=== PATIENT | female | born 1985 | race Caucasian/White ===

== ENCOUNTER 2018-03-03 11:56 | Inpatient (IN) ==
[2018-03-03] MEDS ORDERED: RINGER'S SOLUTION,LACTATED 1,000 ML IV ONE (12:09)
[2018-03-03] MEDS ORDERED: DEXTROSE 5%-LACTATED RINGERS 1,000 ML IV PRN (12:09)
[2018-03-03] MEDS ORDERED: OXYTOCIN/DEXTROSE 5%-WATER 30 UNITS/500 ML BAG IV ONE (12:09)
[2018-03-03] MEDS ORDERED: ONDANSETRON HCL/PF 2 MG/ML VIAL IV PRN ×2 (12:09→22:23)
[2018-03-03 13:10] LABS: Hematocrit 42.1 % (37.0-47.0); Hemoglobin 14.5 gm/dL (12.5-16.0); Mean Corpuscular Hemoglobin 30.7 pg (27-31); Mean Corpuscular Hgb Conc 34.4 g/dl (32-36); Mean Platelet Volume 11.1 fl (8-12.5); Neutrophil # 4.9 K/mm3 (1.3-6.0); Platelet Count 182 K/mm3 (150-450); Red Blood Count 4.73 M/mm3 (4.2-5.4); Red Cell Distribution Width 13.2 % (11.5-14.0); White Blood Count 7.4 K/mm3 (4.0-10.5)
[2018-03-03 13:22] LABS: Albumin * 2.6 gm/dl (3.4-5.0); Anion Gap 11.5 mmol/L (6.8-13.8); BUN/Creatinine Ratio 18.8 (9.0-21.6); Bilirubin, Total 0.2 mg/dL (0.0-1.1); Ca. Corrected For Albumin 9.8 mg/dL (8.4-10.2); Carbon Dioxide 22.3 mmol/L (24-32.6); Potassium 3.8 mmol/L (3.4-4.6); Total Protein 5.8 gm/dL (6.2-8.2)
[2018-03-03 14:39] LABS: Random Urine Total Protein 19.8 mg/dL (0-12)
--- NOTE | 2018-03-03 17:38 | HP ---
Chief Complaint - Chief Complaint Date of Service: 03/03/18 Time of Service: 17:12 Chief Complaint: Induction for non-reassuring antepartum testing. History of Present Illness: 33 yo at 37 2/7 wks presents to L&D for induction of labor due to recurrent non-reassuring testing. Patient has been receiving antepartum testing for a fetus with 2 vessel cord and downward trending growth on ultrasounds. The tracing during NSTs had long periods of min/absent BTBV and occasional decelerations (variable and late). Because of this, she went from weekly to 2x/wk monitoring. Each NST took longer and longer to become reactive, requiring vibra-acoustic stimulation each time. During the past week, she failed to have a reactive NST x 3. She had a BPP after the first one which was 8/8, a JERKER after the 2nd one due to the late deceleration which was O.K. but the tracing had periods of concern. Today she presented to office complaining of contractions - NST again was not reactive and had a late deceleration. For this reason she is being admitted for induction of labor. This complicated by 2 vessel cord, downward trending growth (52.2 -> 27.5%, with HC and BPD <3%), non-reassuring antepartum testing, h/o GHTN, h/o PRROM/PTD at 35 wks. Rh positive Rubella immune GBS negative Medical History (Last Updated 11/17/17 @ 08:04 by [facility]) Anxiety Onset Date: ~03/10/17 Mild mood disorder Onset Date: ~02/23/15 Seasonal allergies Onset Date: Unknown Abnormal Pap smear of cervix Onset Date: ~2004 Chlamydia Onset Date: ~2003 GERD (gastroesophageal reflux disease) Onset Date: ~2006 Gestational HTN Onset Date: ~09/08/13 History of premature rupture of membranes Onset Date: Unknown History of delivery Onset Date: ~08/2013 [place] teeth extracted Onset Date: ~2007 Surgical History: Surgical History (Last Updated 11/17/17 @ 08:11 by [facility]) History of colposcopy Onset Date: ~2004 History of laparoscopic cholecystectomy Onset Date: ~09/04/15 History of placement of ear tubes History of tympanoplasty Onset Date: ~06/29/15 Family History: Family History (Last Updated 11/17/17 @ 08:24 by Nancy Escudero) Aunt Bone cancer Brother Diabetes Father Hypertension Hypercholesterolemia Grandfather Myocardial infarction Grandfather Myocardial infarction Grandmother Tracheal cancer Grandmother Diabetes Mother Alive and well Uncle Leukemia Social History: Preferred Language Bangladeshi Smoking Status Never smoker Abuse History No History of abuse Psych History Hx of Anxiety,Hx of Depression,Currently on Meds Review Of Systems (GEN) - Review of Systems EENTM: Present: No Symptoms Reported Respiratory: Present: No Symptoms Reported Cardiac: Present: No Symptoms Reported Abdominal: Present: No Symptoms Reported Genitourinary: Present: Other - contractions Musculoskeletal: Present: Back Pain Neurological: Present: No Symptoms Reported Skin: Present: No Symptoms Reported Endocrine: Present: No Symptoms Reported Immunizations: IMMUNIZATION HX Immunizations Up to Date Yes History of Influenza Vaccine Yes Hx Pneumococcal Vaccination No Allergies/Adverse Reactions: Allergies Allergy/AdvReac Type Severity Reaction Status Date / Time methylprednisolone Allergy Mild Medrol Verified 03/03/18 11:02 [From Medrol] dose bulmaro caused Hives Home Medications: HOME MEDICATIONS aspirin 81 mg tablet,delayed release 81 mg PO DAILY 11/17/17 [Last Taken 03/01/18] ferrous sulfate 325 mg (65 mg iron) tablet 325 mg PO DAILY tab 11/17/17 [Last Taken 03/01/18] [id number] 400 mcg-om3 35 mg-dha 25 mg-epa 5 mg-fish oil chewable tablet 1 tab PO DAILY tab 01/08/18 [Last Taken 03/01/18] Exam - Exam Vital Signs: Vital Signs - Last Taken Temp 36.2 C 03/03/18 12:27 Pulse 75 03/03/18 12:27 Resp 18 03/03/18 12:27 BP 116/87 03/03/18 12:27 Pulse Ox 97 03/03/18 12:27 Constitutional: Present: Alert, Oriented x3, Cooperative ENT Exam: Present: hearing grossly normal Neck: Absent: thyromegaly Respiratory: Present: lungs clear, no respiratory distress Cardiovascular/Chest: Present: regular rate, rhythm Abdomen: Present: soft, nontender, other - gravid. Absent: rebound tenderness /Rectal: Present: Other - cervix 1-2/50/-2, soft, posterior Extremity: Present: non-tender, no pedal edema, no calf tenderness Skin Exam: Present: normal color, warm/dry, no cyanosis Lymphatic: Present: no adenopathy Neurologic: Present: alert, normal mood/affect, oriented x 3 Appearance: Present: appropriate appearance Eye contact: Present: cooperative Thoughts: Present: normal thought pattern Diagnostic Studies: Abnormal Lab Results 03/03/18 03/03/18 Range/Units 12:09 13:00 Carbon Dioxide 22.3 L (24-32.6) mmol/L Total Protein 5.8 L (6.2-8.2) gm/dL Albumin 2.6 L (3.4-5.0) gm/dl U Random Total Protein 19.8 H (0-12) mg/dL Laboratory Results WBC 7.4 K/mm3 (4.0-10.5) 03/03/18 13:00 RBC 4.73 M/mm3 (4.2-5.4) 03/03/18 13:00 Hgb 14.5 gm/dL (12.5-16.0) 03/03/18 13:00 Hct 42.1 % (37.0-47.0) 03/03/18 13:00 MCV 89.0 fl (78-100) 03/03/18 13:00 MCH 30.7 pg (27-31) 03/03/18 13:00 MCHC 34.4 g/dl (32-36) 03/03/18 13:00 RDW 13.2 % (11.5-14.0) 03/03/18 13:00 Plt Count 182 K/mm3 (150-450) 03/03/18 13:00 MPV 11.1 fl (8-12.5) 03/03/18 13:00 Immature Gran % (Auto) 0.30 % (0.001-0.429) 03/03/18 13:00 Immature Gran # (Auto) 0.02 K/mm3 (0.000-0.0310) 03/03/18 13:00 Neutrophils % 67.0 % (42-75.0) 03/03/18 13:00 Lymphocytes % 26.0 % (20-51) 03/03/18 13:00 Monocytes % 4.8 % (0.0-9) 03/03/18 13:00 Eosinophils % 1.5 % (0.0-3.0) 03/03/18 13:00 Basophils % 0.4 % (0.0-1.0) 03/03/18 13:00 Nucleated RBC % 0.0 k/mm3 (0-1) 03/03/18 13:00 Neutrophils # 4.9 K/mm3 (1.3-6.0) 03/03/18 13:00 Lymphocytes # 1.91 k/mm3 (1.5-3.5) 03/03/18 13:00 Monocytes # 0.4 k/mm3 (0.0-1.0) 03/03/18 13:00 Eosinophils # 0.1 k/mm3 (0.0-0.7) 03/03/18 13:00 Absolute Basophils 0.0 k/mm3 (0.0-0.1) 03/03/18 13:00 Sodium 134 mmol/L (132-142) 03/03/18 13:00 Plasma Sodium 134 mmol/L (130-142) 03/03/18 13:00 Potassium 3.8 mmol/L (3.4-4.6) 03/03/18 13:00 Chloride 104 mmol/L (97-106) 03/03/18 13:00 Carbon Dioxide 22.3 mmol/L (24-32.6) L 03/03/18 13:00 Anion Gap 11.5 mmol/L (6.8-13.8) 03/03/18 13:00 BUN 13 mg/dL (3-23) 03/03/18 13:00 Creatinine 0.69 mg/dL (0.4-1.4) 03/03/18 13:00 Est GFR (Non-Af Amer) 104 mL/min (60-130) 03/03/18 13:00 BUN/Creatinine Ratio 18.8 (9.0-21.6) 03/03/18 13:00 Random Glucose 88 mg/dL (70-110) 03/03/18 13:00 Calcium 9.0 mg/dL (7.9-10.9) 03/03/18 13:00 Calcium Adj for Albumin 9.8 mg/dL (8.4-10.2) 03/03/18 13:00 Total Bilirubin 0.2 mg/dL (0.0-1.1) 03/03/18 13:00 AST 19 U/L (0-48) 03/03/18 13:00 ALT 21 U/L (19-67) 03/03/18 13:00 Alkaline Phosphatase 160 U/L (50-170) 03/03/18 13:00 Total Protein 5.8 gm/dL (6.2-8.2) L 03/03/18 13:00 Albumin 2.6 gm/dl (3.4-5.0) L 03/03/18 13:00 Ur Random Creatinine 164.1 mg/dL (60-200) 03/03/18 12:09 U Random Total Protein 19.8 mg/dL (0-12) H 03/03/18 12:09 U [place] Prot/Creat Ratio 121 mg/gm (0-199) 03/03/18 12:09 Assessment/Plan - Assessment/Plan (1) Encounter for induction of labor Assessment: Discussed options with patient of continued frequent antepartum testing until 39 wks or until testing became more ominous vs induction of labor. She understands risks of intolerance to labor or prolonged induction due to unfavorable cervix with high risk of due to either condition. As well as increased risks of trouble with baby after delivery due to underlying condition(s), lung immaturity, etc. which may require transfer of baby to [facility]. She desires to proceed with induction of labor. Will start induction of labor with pitocin since concern for inability to stop contractions with Cytotec if baby doesn't tolerate well. Will add cuevas bulb when cervix becomes more accessible. Discussed case and reviewed tracings with my partner who concurs with plan. Notified peds personnel interviewer. Problem: Acute (2) Non-reassuring electronic monitoring tracing Problem: Resolved (3) Poor growth in , third trimester Problem: Acute Qualifiers: Fetus number: single or unspecified fetus Qualified Code(s): O36.5930 - Maternal care for other known or suspected poor growth, third trimester, not applicable or unspecified (4) Two vessel umbilical cord in gutierrez , antepartum Problem: Acute
[2018-03-03] MEDS ORDERED: NALOXONE HCL 1 MG/1 ML SYRG IV PRN (22:23)
[2018-03-03] MEDS ORDERED: fentaNYL CITRATE/PF 50 MCG/ML AMPUL IT SCH (22:30)
[2018-03-03 23:08] LABS: Cocaine Ur Negative (NEGATIVE); Urine Barbiturate Negative (NEGATIVE); Urine Benzodiazepines Negative (NEGATIVE); Urine Opiates Negative (NEGATIVE); Urine PCP Negative (NEGATIVE); Urine THC Negative (NEGATIVE)
--- NOTE | 2018-03-03 23:23 | ANES ---
Post Anesthesia Assessment - Vital Signs Vitals: Last Vital Signs Temp 36.2 C 03/03/18 12:27 Pulse 75 03/03/18 12:27 Resp 18 03/03/18 12:27 BP 116/87 03/03/18 12:27 Pulse Ox 97 03/03/18 12:27 Airway Patency: Normal - Mental Status Level Of Consciousness: Awake - Pain Level Pain Score: 1 - N/V Assessment Nausea/Vomiting Presence: None Dehydration:: No
--- NOTE | 2018-03-03 23:23 | ANES ---
Post Anesthesia Discharge - Transfer of Care Transfer of Care handoff given to nurse: Yes - Anesthesia Post Op Note Anesthesia Post Op Note: Care transferred to OB RN
--- NOTE | 2018-03-03 23:23 | ANES ---
Anesthesia Pre Procedure Eval Vitals/Labs: Last Vital Signs Temp 36.2 C 03/03/18 12:27 Pulse 75 03/03/18 12:27 Resp 18 03/03/18 12:27 BP 116/87 03/03/18 12:27 Pulse Ox 97 03/03/18 12:27 HOME MEDICATIONS aspirin 81 mg tablet,delayed release 81 mg PO DAILY 11/17/17 [Last Taken 03/01/18] ferrous sulfate 325 mg (65 mg iron) tablet 325 mg PO DAILY tab 11/17/17 [Last Taken 03/01/18] [id number] 400 mcg-om3 35 mg-dha 25 mg-epa 5 mg-fish oil chewable tablet 1 tab PO DAILY tab 01/08/18 [Last Taken 03/01/18] Allergies/Adverse Reactions: Allergies Allergy/AdvReac Type Severity Reaction Status Date / Time methylprednisolone Allergy Mild Medrol Verified 03/03/18 11:02 [From Medrol] dose bulmaro caused Hives - Planned Procedure Planned Procedure: INDUCTION OF LABOR Medication List Reviewed:: Yes Allergies Verified: Yes Medical History (Last Updated 11/17/17 @ 08:04 by Nancy Escudero) Anxiety Onset Date: ~03/10/17 Mild mood disorder Onset Date: ~02/23/15 Seasonal allergies Onset Date: Unknown Abnormal Pap smear of cervix Onset Date: ~2004 Chlamydia Onset Date: ~2003 GERD (gastroesophageal reflux disease) Onset Date: ~2006 Gestational HTN Onset Date: ~09/08/13 History of premature rupture of membranes Onset Date: Unknown History of delivery Onset Date: ~08/2013 [place] teeth extracted Onset Date: ~2007 Surgical History (Last Reviewed 03/03/18 @ 23:22 by Jarvis Calle CRNA) History of colposcopy Onset Date: ~2004 History of laparoscopic cholecystectomy Onset Date: ~09/04/15 History of placement of ear tubes History of tympanoplasty Onset Date: ~06/29/15 Family History (Last Reviewed 03/03/18 @ 23:22 by Jarvis Calle CRNA) Aunt Bone cancer Brother Diabetes Father Hypertension Hypercholesterolemia Grandfather Myocardial infarction Grandfather Myocardial infarction Grandmother Tracheal cancer Grandmother Diabetes Mother Alive and well Uncle Leukemia - Family Anesthesia History Family History:: no untoward family reactions to anesthesia - Airway/Neck/Teeth Within Normal Limits:: Yes Neck Exam: normal inspection Mallampatti Score: 2 Thyromental (T-M) distance: > 6 cm Mandibulo Hyoid distance: > 3 cm - Respiratory Respiratory: lungs clear Smoking Status: Never smoker Sleep Apnea currently treated: No Sleep Apnea by current assessment: No - Cardiovascular Patient History - Cardiac/Respiratory: No pertinent hx Tolerates Activity: Good Heart Sounds: S1 & S2, Regular - Anesthesia Assessment and Plan ASA Class: PS, II, E Anesthesia Type Plan: Epidural Planned difficult intubation/equipment available: No
--- NOTE | 2018-03-03 23:24 | ANES ---
Anesthesia Procedure Note Procedure Note: ANESTHESIA PROCEDURE NOTE Date of Procedure: 03/03/2018 Time of procedure:[]. 2300 Performed by: Cristiano Calle CRNA Infrastructure Administrator: None. Preprocedure diagnosis: Active labor. Post procedure diagnosis: Same. Procedure: Insertion of labor epidural. Indications: The patient is a [33] -year-old [multigravida] female in active labor requesting labor epidural for pain management. Findings: See below. Details of the procedure: The patient was placed in a sitting position. Back was prepped with DuraPrep. Patient was then draped in a sterile fashion. Lidocaine 1% was infiltrated to the skin and subcutaneous tissues at the level of the L3 4 interspace. The epidural space was identified using a 18-gauge Tuohy needle with [id number] technique. 20 mcg fentanyl was given intrathecally using a 27 ga. spinal needle. Epidural catheter was inserted without difficulty. Negative test dose was elicited using 5 mL of 1.5% preservative-free lidocaine plus epinephrine 1 200,000. The epidural catheter was then taped and secured in place. EBL: Minimal. Fluids: N/A. Specimen: N/A. Post procedure condition: The patient tolerated the procedure well. No complications were noted. Thank you for this consultation. Springer CRNA
[2018-03-03] MEDS ORDERED: BUPIVACAINE HCL/0.9 % NACL/PF 250 ML EP PRN (23:55)
--- NOTE | 2018-03-04 00:11 | PN ---
Progess Note - Interim Date: 03/04/18 Time: 00:09 Narrative: 03/04/18 00:09 Patient comfortable with epidural Vital signs stable. Pitocin at 6 mu/min. FHT: 140 baseline, moderate variability with good accelerations and occasional late deceleration Contractions q 2-3 min Cervix: 6/80/-2, AROM-clear Impression: Intrauterine at 37-3/7 weeks, induction of labor for nonreassuring tracing Plan: Continue present plan. Expect normal spontaneous vaginal delivery in the next few hours.
[2018-03-04] MEDS ORDERED: BISACODYL 10 MG SUPP.RECT RC PRN (05:33)
[2018-03-04] MEDS ORDERED: GLYCERIN/WITCH HAZEL LEAF 40 APPL BOX TP PRN (05:33)
[2018-03-04] MEDS ORDERED: OXYTOCIN/DEXTROSE 5%-WATER 30 UNITS/500 ML BAG IV ONE (05:33)
[2018-03-04] MEDS ORDERED: BENZOCAINE/MENTHOL 81 SPRAY CAN TP PRN (05:33)
[2018-03-04] MEDS ORDERED: oxyCODONE HCL/ACETAMINOPHEN 1 TAB TABLET PO PRN ×2 (05:33)
[2018-03-04] MEDS ORDERED: SENNOSIDES 8.6 MG TABLET PO PRN (05:33)
--- NOTE | 2018-03-04 05:35 | OR ---
Operative Report - Dictated Report Narrative: Spontaneous vaginal delivery of viable female at 0515 on 03/04/2018 with Apgars 8 and 9, weighing 2646 g in CAESAR position. Cord clamping delayed approximately 1 minute Placenta delivered complete, intact, with two vessel cord Estimated blood loss: less than 50 ml Anesthesia: epidural Lacerations: None History for MU Definition: * The number of deliveries resulting in a live the patient experienced prior to current hospitalization * The previous delivery of live twins or any live multiple gestation is considered one live event. *If primagravida or nulliparous is documented select zero for the number of p revious live births. Live Events: 1
[2018-03-04] MEDS: IBUPROFEN 800 MG TABLET PO PRN ×2 (08:43→15:22)
[2018-03-04] MEDS: DOCUSATE SODIUM 100 MG CAPSULE PO SCH ×2 (10:56→21:27)
[2018-03-05] MEDS: IBUPROFEN 800 MG TABLET PO PRN (08:41)
[2018-03-05] MEDS: DOCUSATE SODIUM 100 MG CAPSULE PO SCH ×2 (08:42→20:24)
--- NOTE | 2018-03-05 15:11 | PN ---
Subjective - Date and Time Seen Date: 03/05/18 Time: 15:09 Subjective Narrative: Pt without complaints, VB is normal Objective Objective Narrative: See vitals - Review of Systems Generalized/Overall Review: Reports: No Symptoms Reported Misc: All systems neg except as marked - Vitals Vitals: Last Vital Signs Temp 36.7 C 03/05/18 14:00 Pulse 67 03/05/18 14:00 Resp 16 03/05/18 14:00 BP 122/74 03/05/18 14:00 Pulse Ox 96 03/05/18 14:00 - Exam Constitutional: Present: Alert, Oriented x3, Cooperative, No distress Extremity: Present: non-tender, normal inspection, no calf tenderness, pedal edema Skin Exam: Present: normal color, warm/dry, no cyanosis Appearance: Present: appropriate appearance Eye contact: Present: cooperative Thoughts: Present: normal thought pattern Assessment/Plan Plan Narrative: PPD 1 s/p Doing well Discharge tomorrow
--- NOTE | 2018-03-06 07:59 | PN ---
Subjective - Date and Time Seen Date: 03/06/18 Time: 07:58 Subjective Narrative: Pt without complaints, VB is normal Objective Objective Narrative: See vitals - Review of Systems Generalized/Overall Review: Reports: No Symptoms Reported Misc: All systems neg except as marked - Vitals Vitals: Last Vital Signs Temp 36.3 C 03/06/18 02:20 Pulse 74 03/06/18 02:20 Resp 18 03/06/18 02:20 BP 125/74 03/06/18 02:20 Pulse Ox 93 03/06/18 02:20 - Exam Constitutional: Present: Alert, Oriented x3, Cooperative, No distress Abdomen: Present: soft, nontender, nondistended - fundus is firm Extremity: Present: non-tender, normal inspection, no calf tenderness, pedal edema Skin Exam: Present: normal color, warm/dry, no cyanosis Appearance: Present: appropriate appearance Eye contact: Present: cooperative Thoughts: Present: normal thought pattern Assessment/Plan Plan Narrative: PPD 2 s/p 1. Doing well 2. Discharge home today
[2018-03-06 08:20] VITALS: BP 118/78
[2018-03-06] MEDS: DOCUSATE SODIUM 100 MG CAPSULE PO SCH (09:50)
== END 2018-03-06 11:00 | disposition home or self-care (01) | DRG 807 ==
LOC: OB 11:56
PROVIDERS: ADMIT Obstetrics & Gynecology; ATTEND Obstetrics & Gynecology
CPT/HCPCS: 36415; 59025; 80053; 80307; 82570; 84155; 84156; 85025; 88307; G0479